=== PATIENT | female | born 1945 | race Caucasian/White ===

== ENCOUNTER 2016-09-25 21:32 | Inpatient (IN) | payer OTHER, BC ==
[~2016-09-25] VITALS: Ht 172.7 cm; Wt 82.4 kg
[2016-09-25 22:07] LABS: MCH 30.3 PG (29.0-34.0); MCHC 32.6 G/DL (30.0-36.0); MCV 92.9 FL (83-99); MEAN PLAT.VOLUME 9.1 uM^3 (9.5-12.4); PLATELET COUNT 377 K/uL (156-360); RBC DIS.WIDTH-CV 12.8 % (11.8-14.6); RBC DIS.WIDTH-SD 42.1 % (39-53); RED BLOOD COUNT 4.09 M/uL (3.80-5.20); WHITE BLOOD COUNT 12.9 K/uL (4.1-10.2)
[2016-09-25 22:21] LABS: CHLORIDE 105 mEq/L (99-109); POTASSIUM 4.4 mEq/L (3.7-5.4); SODIUM 140 mEq/L (136-147)
[2016-09-25 22:23] LABS: GLUCOSE 104 mg/dL (70-99)
[2016-09-25 22:24] LABS: ANION GAP 12 MEQ/L (2-14)
[2016-09-25 22:27] LABS: GFR ESTIMATE (CALCULATED) > 59 mL/min/; UREA NITROGEN (BUN) 12 mg/dL (9-23)
[2016-09-25 22:28] LABS: TROP-I INTERPRETATION NEGATIVE; TROPONIN-I < 0.01 ng/mL (0.0-0.30)
[2016-09-25 23:06] LABS: CREATINE KINASE 63 IU/L (1-294)
[2016-09-25 23:13] LABS: D-DIMER ELISA 3.68 mg/L FEU (< 0.57)
[2016-09-26] MEDS ORDERED: ATORVASTATIN CA40 MG PO (03:20)
[2016-09-26] MEDS ORDERED: DESLORATADINE5 MG PO (03:21)
[2016-09-26] MEDS ORDERED: RESTASIS 01 DROP/0.4 BOTH EYES (03:21)
[2016-09-26] MEDS ORDERED: PRILOSEC20 MG PO (03:21)
[2016-09-26] MEDS ORDERED: METFORMIN HCL500 M4 PO (03:26)
[2016-09-26] MEDS ORDERED: NAPROSYN500 MG PO (03:27)
[2016-09-26 04:58] VITALS: BP 127/65
[2016-09-26 07:40] VITALS: BP 113/61
[2016-09-26 10:49] LABS: TROP-I INTERPRETATION NEGATIVE; TROPONIN-I < 0.01 ng/mL (0.0-0.30)
[2016-09-26 11:40] VITALS: BP 113/62
[2016-09-26 15:00] VITALS: BP 117/56
[2016-09-26] MEDS ORDERED: LO-DOSE ASPIRIN81 M2 PO (15:03)
[2016-09-26] MEDS ORDERED: veramyst BOTH NARES (15:04)
[2016-09-26 19:10] VITALS: BP 117/55
[2016-09-26 21:03] LABS: POINT-OF-CARE METER ID UU13113781
[2016-09-26 23:15] VITALS: BP 119/79
[2016-09-27 03:15] VITALS: BP 120/66
[2016-09-27 06:58] LABS: EOSINOPHIL COUNT 0.5 K/uL (0-0.3); HEMATOCRIT 33.7 % (36.0-46.0); IMMATURE GRANULOCYTE (%) 0.2 % (0.0-0.7); LYMPHOCYTE COUNT 1.2 K/uL (1.0-2.8); MCV 93.6 FL (83-99); MEAN PLAT.VOLUME 9.3 uM^3 (9.5-12.4); MONOCYTE COUNT 0.8 K/uL (0-0.8); NEUTROPHIL (%) 74.9 % (45-76); NEUTROPHIL COUNT 7.8 K/uL (1.8-6.4); PLATELET COUNT 307 K/uL (156-360); RBC DIS.WIDTH-CV 13.3 % (11.8-14.6); RBC DIS.WIDTH-SD 45.6 % (39-53); WHITE BLOOD COUNT 10.4 K/uL (4.1-10.2)
[2016-09-27 07:24] LABS: ANION GAP 6 MEQ/L (2-14); CHLORIDE 108 MEQ/L (99-109); GFR ESTIMATE (CALCULATED) > 59 mL/min/; GLUCOSE 118 mg/dL (70-99); POTASSIUM 4.4 MEQ/L (3.7-5.4); SAMPLE HEMOLYSIS CHECK 0; SAMPLE ICTERIC CHECK 0; SAMPLE LIPEMIA CHECK 0; SODIUM 141 MEQ/L (136-147); UREA NITROGEN (BUN) 8 mg/dL (9-23)
[2016-09-27 07:52] VITALS: BP 106/57
[2016-09-27 08:46] LABS: POINT-OF-CARE USER ID NUTSLF44
[2016-09-27 11:07] VITALS: BP 111/64
[2016-09-27 11:41] LABS: POINT-OF-CARE METER ID UU14174216; POINT-OF-CARE USER ID NUTSLF44
[2016-09-27 16:00] VITALS: BP 130/60
[2016-09-27 17:28] LABS: POINT-OF-CARE METER ID UU13113698; POINT-OF-CARE USER ID NUTSLF44
[2016-09-27 19:54] VITALS: BP 132/63
[2016-09-27 21:22] LABS: POINT-OF-CARE METER ID UU13113781
[2016-09-28 00:08] VITALS: BP 109/62
[2016-09-28 03:37] VITALS: BP 128/61
[2016-09-28 07:01] LABS: EOSINOPHIL (%) 4.3 % (0-5); EOSINOPHIL COUNT 0.5 K/uL (0-0.3); HEMATOCRIT 33.5 % (36.0-46.0); IMMATURE GRANULOCYTE (%) 0.1 % (0.0-0.7); LYMPHOCYTE COUNT 1.1 K/uL (1.0-2.8); MCH 30.6 PG (29.0-34.0); MCHC 32.8 G/DL (30.0-36.0); MCV 93.3 FL (83-99); MEAN PLAT.VOLUME 9.2 uM^3 (9.5-12.4); MONOCYTE (%) 8.3 % (3-12); MONOCYTE COUNT 0.9 K/uL (0-0.8); NEUTROPHIL (%) 76.6 % (45-76); PLATELET COUNT 369 K/uL (156-360); RBC DIS.WIDTH-CV 13.3 % (11.8-14.6); RBC DIS.WIDTH-SD 45.8 % (39-53); RED BLOOD COUNT 3.59 M/uL (3.80-5.20); WHITE BLOOD COUNT 10.4 K/uL (4.1-10.2)
[2016-09-28 07:34] LABS: ANION GAP 7 MEQ/L (2-14); CHLORIDE 107 MEQ/L (99-109); GFR ESTIMATE (CALCULATED) > 59 mL/min/; GLUCOSE 105 mg/dL (70-99); MAGNESIUM 1.8 mg/dl (1.3-2.7); POTASSIUM 4.2 MEQ/L (3.7-5.4); SAMPLE HEMOLYSIS CHECK 0; SAMPLE ICTERIC CHECK 0; SAMPLE LIPEMIA CHECK 0; SODIUM 141 MEQ/L (136-147); UREA NITROGEN (BUN) 7 mg/dL (9-23)
[2016-09-28 08:00] VITALS: BP 130/60
[2016-09-28 08:14] LABS: POINT-OF-CARE METER ID UU14174216; POINT-OF-CARE USER ID ENVKC36
[2016-09-28] MEDS ORDERED: XARELTO20 MG PO (09:21)
[2016-09-28] MEDS ORDERED: Colchicine,Colcrys PO (09:21)
[2016-09-28] MEDS ORDERED: CARDIZEM CD120 MG PO (09:21)
[2016-09-28] MEDS ORDERED: MOTRIN600 MG PO (09:21)
[2016-09-28 11:54] LABS: POINT-OF-CARE METER ID UU14174216; POINT-OF-CARE USER ID ENVKC36
== END 2016-09-28 15:33 | disposition home or self-care (01) | DRG 309 ==
LOC: EME 21:32 → 4EAST 09-26 03:22 → EDOF 09-26 03:22 → 4EAST 09-26 04:27
PROVIDERS: Internal Medicine; Physician Assistant Medical
DX: I48.0 Paroxysmal atrial fibrillation (principal); I30.1 Infective pericarditis; E78.5 Hyperlipidemia, unspecified; E11.9 Type 2 diabetes mellitus without complications; F41.0 Panic disorder [episodic paroxysmal anxiety]; K21.9 Gastro-esophageal reflux disease without esophagitis; G25.81 Restless legs syndrome; Z85.42 Personal history of malignant neoplasm of other parts of uterus; Z88.0 Allergy status to penicillin
CPT/HCPCS: 71020; 71275; 80048; 82550; 82565; 82948; 83735; 84443; 84484; 84520; 85025; 85027; 85379; 93005; 93306; 93970; 99281; 99285; J1644; J1815; J1885; J3010; J7030